=== PATIENT | female | born 1985 | race Asian ===

== ENCOUNTER 2019-08-17 11:00 | Emergency (ER) | payer MEDICAID, OTHER ==
[~2019-08-17] VITALS: Ht 167.6 cm; Wt 61.2 kg
[2019-08-17 14:43] VITALS: BP 121/76
== END 2019-08-17 15:51 | disposition home or self-care (01) ==
LOC: ER 11:00
DX: S52.614A Nondisplaced fracture of right ulna styloid process, initial encounter for closed fracture (principal); S66.911A Strain of unspecified muscle, fascia and tendon at wrist and hand level, right hand, initial encounter; L03.116 Cellulitis of left lower limb; L03.115 Cellulitis of right lower limb; S80.02XA Contusion of left knee, initial encounter; S80.01XA Contusion of right knee, initial encounter; S40.022A Contusion of left upper arm, initial encounter; S40.021A Contusion of right upper arm, initial encounter; Z32.02 Encounter for pregnancy test, result negative; Y04.2XXA Assault by strike against or bumped into by another person, initial encounter; Y93.89 Activity, other specified; Y92.89 Other specified places as the place of occurrence of the external cause; Y99.8 Other external cause status
CPT/HCPCS: 29125; 73020; 73110; 73562; 81025

== ENCOUNTER 2020-06-16 15:16 | Emergency (ER) | payer BC, MEDICAID ==
[~2020-06-16] VITALS: Ht 162.6 cm; Wt 76.2 kg
[2020-06-16 15:26] VITALS: BP 127/82
[2020-06-16 16:22] LABS: Basophils # (auto) 0 10 ^3/uL (0-0.2); Basophils % (auto) 0.9 % (0.0-2.0); Eosinophils # (auto) 0.2 10 ^3/uL (0-0.8); Eosinophils % (auto) 3.4 % (0.0-7.0); Hematocrit 39.9 % (36.0-46.0); Hemoglobin 13.6 g/dL (12.2-16.2); Lymphocytes # (auto) 2.4 10 ^3/uL (0.4-5.4); Lymphocytes % (auto) 46.2 % (10.0-50.0); Mean Corpuscular Hemoglobin 29.5 pg (28.0-32.0); Mean Corpuscular Volume 86.6 fL (80.0-100.0); Monocytes # (auto) 0.4 10 ^3/uL (0-1.3); Monocytes % (auto) 6.8 % (0.0-12.0); Neutrophils # (auto) 2.2 10 ^3/uL (1.6-8.6); Neutrophils % (auto) 42.7 % (37.0-80.0); Nucleated Red Blood Cells % 0.1 %; Platelet Count (auto) 230 10^3/uL (140-450); Red Blood Cells 4.61 10^6/uL (4.0-5.20); Red Cell Distribution Width 12.9 % (11.8-14.3); White Blood Cell 5.2 10^3/uL (4.4-10.8)
[2020-06-16 16:43] LABS: Chloride 107 mmol/L (98-107); Potassium 3.6 mmol/L (3.5-5.1); Sodium 138 mmol/L (136-145)
[2020-06-16 16:52] LABS: Alanine Aminotransferase 285 U/L (13-56); Alkaline Phosphatase 102 U/L (45-117); Anion Gap 3 (5-15); Aspartate Aminotransferase 121 U/L (15-37); BUN/Creatinine Ratio 11.8; Bilirubin, Total 0.4 mg/dL (0.2-1.0); Blood Urea Nitrogen 9 mg/dL (7-18); Calcium 8.7 mg/dL (8.5-10.1); Carbon Dioxide 28 mmol/L (21-32); GFR African American 111 mL/min; GFR Non-African American 92 mL/min; Glucose 140 mg/dL (74-106); Total Protein 7.4 g/dL (6.4-8.2)
[2020-06-16 17:55] LABS: Urine Bacteria FEW /hpf (None Seen); Urine Blood Negative /uL (Negative); Urine Mucus FEW (None Seen); Urine Specific Gravity 1.022 (1.001-1.035); Urine WBC 5 /hpf (0 - 5)
== END 2020-06-16 18:52 | disposition home or self-care (01) ==
LOC: ER 15:16
DX: K76.0 Fatty (change of) liver, not elsewhere classified (principal); R74.8 Abnormal levels of other serum enzymes; R07.9 Chest pain, unspecified; Z32.02 Encounter for pregnancy test, result negative
CPT/HCPCS: 36415; 71046; 76705; 80053; 81001; 81025; 83690; 84484; 85025; 93005

== ENCOUNTER 2023-09-12 22:26 | Emergency (ER) | payer BC, MEDICAID ==
[~2023-09-12] VITALS: Ht 162.6 cm; Wt 69.3 kg
[2023-09-13] MEDS ORDERED: ZOFR4T PO ×2 (00:48→11:16)
[2023-09-13] MEDS ORDERED: HYDR-4902 PO ×3 (00:48→15:43)
[2023-09-13 01:22] VITALS: BP 137/92; PULSE 72; RESP 16; TEMP 98.4; O2SAT 98
[2023-09-13] MEDS: MECLIZINE HCL 25 MG TAB PO ONE (02:07)
[2023-09-13] MEDS: KETOROLAC TROMETH 60MG/2ML VIAL IM ONE (02:08)
[2023-09-13] MEDS: ONDANSETRON ODT 4 MG TAB PO ONE (02:08)
[2023-09-13] MEDS: HYDROcodone-ACET 5/325MG TAB PO ONE (02:08)
== END 2023-09-13 04:07 | disposition home or self-care (01) ==
LOC: ER 22:26
DX: R51.9 Headache, unspecified (principal); R42 Dizziness and giddiness; R11.2 Nausea with vomiting, unspecified; E78.5 Hyperlipidemia, unspecified
CPT/HCPCS: 70450; 96372; 99285; J1885; J8597; Q0162

== ENCOUNTER 2024-02-01 09:06 | Emergency (ER) | payer MEDICAID ==
[~2024-02-01] VITALS: Ht 165.1 cm; Wt 55.0 kg
[~2024-02-01 09:06] MED LIST: HYDR-4902 PO; ZOFR4T PO
[2024-02-01 09:33] LABS: Basophils # (auto) 0.1 10 ^3/uL (0-0.2); Basophils % (auto) 0.9 % (0.0-2.0); Eosinophils # (auto) 0.1 10 ^3/uL (0-0.8); Eosinophils % (auto) 2.3 % (0.0-7.0); Hematocrit 41.6 % (36.0-46.0); Hemoglobin 14.1 g/dL (12.2-16.2); Lymphocytes # (auto) 2.5 10 ^3/uL (0.4-5.4); Lymphocytes % (auto) 41.3 % (10.0-50.0); Mean Corpuscular Hemoglobin 28.9 pg (28.0-32.0); Mean Corpuscular Hgb Conc. 33.9 g/dL (32.0-36.0); Mean Corpuscular Volume 85.1 fL (80.0-100.0); Monocytes # (auto) 0.4 10 ^3/uL (0-1.3); Neutrophils % (auto) 49.5 % (37.0-80.0); Nucleated Red Blood Cells % 0.1 %; Red Blood Cells 4.88 10^6/uL (4.0-5.20); Red Cell Distribution Width 13.4 % (11.8-14.3)
[2024-02-01 09:56] LABS: Alanine Aminotransferase 16 U/L (7-40); Albumin 4.8 g/dL (3.2-4.8); Alkaline Phosphatase 84 U/L (46-116); Anion Gap 6 (5-15); Aspartate Aminotransferase 10 U/L (13-40); BUN/Creatinine Ratio 13.3 (10.0-20.0); Blood Urea Nitrogen 8 mg/dL (9-23); Calcium 9.7 mg/dL (8.7-10.4); Carbon Dioxide 27 mmol/L (20-30); Chloride 106 mmol/L (98-107); Glucose 86 mg/dL (74-106); Sodium 139 mmol/L (136-145)
[2024-02-01 09:57] LABS: Bilirubin, Total 0.5 mg/dL (0.2-1.0); Total Protein 7.4 g/dL (5.7-8.2)
[2024-02-01 10:32] LABS: Urine Bacteria FEW /hpf (None Seen); Urine Blood Negative /uL (Negative); Urine Clarity Clear (Clear); Urine Color Colorless (Yellow); Urine Protein, UAD Negative (Negative); Urine Specific Gravity 1.008 (1.001-1.035); Urine Urobilinogen Normal (Negative); Urine WBC <1 /hpf (0 - 5); Urine pH 5.5 (5.0-9.0)
[2024-02-01 10:56] VITALS: BP 127/76; TEMP 97.8
[2024-02-01] MEDS: SODIUM CHLORIDE 0.9% 1,000 ML IV ONE (11:11)
[2024-02-01] MEDS: KETOROLAC TROMETH 30 MG/ML 1ML VIAL IV ONE (11:30)
[2024-02-01 11:33] VITALS: PULSE 82; RESP 16; O2SAT 100
[2024-02-01] MEDS ORDERED: BUSP10TA31 PO (12:08)
[2024-02-01] MEDS ORDERED: DICL50TA2 PO (12:08)
== END 2024-02-01 12:25 | disposition home or self-care (01) ==
LOC: ER 09:06
DX: M94.0 Chondrocostal junction syndrome [Tietze] (principal); G47.00 Insomnia, unspecified; R07.89 Other chest pain; E78.5 Hyperlipidemia, unspecified; Z98.890 Other specified postprocedural states; Z79.899 Other long term (current) drug therapy
CPT/HCPCS: 36415; 71046; 80053; 81001; 83735; 84484; 85025; 93005; 96361; 96374; 99285; J1885; J7030